=== PATIENT | female | born 1995 | race Hispanic/Latino ===

== ENCOUNTER 2016-10-06 16:12 | Emergency (ER) | payer MEDICAID, OTHER ==
[~2016-10-06] VITALS: Ht 165.1 cm; Wt 55.5 kg
[2016-10-06 16:16] VITALS: BP 122/81; PULSE 94; RESP 20; O2SAT 99
[2016-10-06] MEDS ORDERED: 0.9% Sodium Chloride 1,000 ML IV ONE (17:35)
[2016-10-06] MEDS ORDERED: Ondansetron 2 mg/mL 2 mL Inj IVPUSH PRN (18:05)
[2016-10-06] MEDS: HYDROmorphone 0.5 mg/0.5 mL iSecure Syringe IVPUSH PRN ×2 (18:08→19:02)
--- NOTE | 2016-10-06 18:11 | ED.REPORT ---
HPI-Abd Pain F Under 40 Date of Service Oct 06, 2016 ED Provider: Eran Khan DO A healthy 21 year old female presents to the ED accompanied by a male travograph operator complaining of four days of abdominal pain. Pain has been migrating around her abdomen and is currently localized in the RUQ. She also reports sore throat and left ear pain onset this morning upon awakening. Patient was seen at [facility] in [place] earlier today where she was diagnosed with an ear infection and given amoxicillin and Vicodin. CT at [facility] revealed fluid accumulation in her abdomen. She came down to the hospital here because she did not feel as though she received thorough treatment by providers in [place]. Nursing Notes Stated Complaint: STOMACH PAIN, EAR PAIN AND BLEEDING Chief Complaint: Female Abdominal Pain Nursing Notes Reviewed: Yes Allergies: Coded Allergies: No Known Allergies (Unverified , 10/06/16) General Time Seen by MD: 18:02 Chief Complaint Abdominal pain Hx Obtained From: Patient Arrived By: Walk-in Sudden in Onset?: No Onset Occurred: 4 days ago Symptom Duration: Since onset Location: : Diffuse: RLQ: RUQ Severity: Current: Moderate Severity: Maximum: Moderate Past Medical History Past Medical History Healthy Smoking History Unknown if Ever Smoker Social History Drug Use: THC Other Social History: Good social support Ambulatory Status Independent Review of Systems Constitutional: Denies: Chills, Fever Respiratory: Denies: Non-productive cough GI: Reports: Abdominal pain, Denies: Nausea, Vomiting Female: Reports: Flank pain (Right) Complete sys rev & neg: except as marked. Ears / Nose / Throat: Reports: Earache left, Sore throat Physical Exam Initial Vital Signs Vital Signs (First) Date Time Temp Pulse Resp B/P Pulse Ox O2 Delivery O2 Flow Rate FiO2 10/06/16 16:16 37.2 94 20 122/81 99 Room Air Initial VS: Reviewed Head / Eyes: Atraumatic, Normocephalic Extremities: Vascular intact, Neuro intact, No swelling, No tenderness Skin: Warm, Dry, No cyanosis Neurologic: Alert, Oriented, Nonfocal General/Constitutional: Awake, Alert, No acute distress, Well appearing Respiratory / Chest: Breath sounds NL, Breath sounds = bilat, No respiratory distress, No rales, No rhonchi, No wheezing Cardiovascular: Heart rate NL, Regular rhythm, Heart sounds NL, Peripheral circulation NL Abdomen: No rebound, No distention Tenderness/Guarding/Rebound: Positive: Tender RUQ... Back: Inspection NL, Non-tender, No CVA tenderness ENT: Airway patent, Mucous membranes moist Left TM ruptured, with blood on TM. Interpretation & Diagnostics Interpretation & Diagnostics: PROCEDURE: US ABDOMEN ([id number]) IMPRESSION: Normal abdomen ultrasound. Cause of right upper quadrant pain is not identified. Dictated by: Yusef Mccarthy M.D. on 10/06/2016 at 19:57 Approved by: Yusef Mccarthy M.D. on 10/06/2016 at 19:57 Lab Results Interpretation Result Diagram: 10/06/16 1748 10/06/16 1748 Test 10/06/16 17:27 10/06/16 17:48 10/06/16 18:23 Hold Urine Received (Received) White Blood Count 14.4th/mm3 (3.8-10.1) Red Blood Count 4.55mil/mm3 (3.90-5.20) Hemoglobin 13.9g/dL (12.0-15.6) Hematocrit 40.8% (35.0-46.0) Mean Corpuscular Volume 89.7fL (81-100) Mean Corpuscular Hemoglobin 30.5pg (27.0-35.0) Mean Corpuscular Hemoglobin Concent 34.1% (32.0-37.0) Red Cell Distribution Width 13.3% (12.3-15.4) Platelet Count 211bil/L (150-400) Neutrophils (%) (Auto) 83.2% (40-74) Lymphocytes (%) (Auto) 7.9% (14-46) Monocytes (%) (Auto) 6.3% (4-12) Eosinophils (%) (Auto) 2.2% (0-5) Basophils (%) (Auto) 0.1% (0-3) Sodium Level 138mEq/L (134-144) Potassium Level 3.6mEq/L (3.5-5.2) Chloride Level 101mEq/L (97-108) Carbon Dioxide Level 24mmol/L (18-29) Blood Urea Nitrogen 8mg/dL (6-20) Creatinine 0.44mg/dL (0.57-1.00) Estimat Glomerular Filtration Rate 254mL/min (>59) Glucose Level 97mg/dL (60-99) Calcium Level 8.8mg/dL (8.5-10.1) Magnesium Level 1.8mg/dL (1.6-2.6) Total Bilirubin 0.4mg/dL (0.0-1.2) Aspartate Amino Transf (AST/SGOT) 22U/L (0-50) Alanine Aminotransferase (ALT/SGPT) 14U/L (0-32) Alkaline Phosphatase 80U/L (25-150) Total Protein 6.8g/dL (6.4-8.4) Albumin 4.0g/dL (3.4-5.0) Lipase 16U/L (13-60) HCG Beta Subunit < 0.5mIU/mL Urine Color Straw (YELLOW) Urine Appearance Clear (CLEAR,HAZY) Urine pH 6.0 (5.0-8.0) Urine Specific Michie 1.015 (1.003-1.035) Urine Protein Negativemg/dL (NEG,TRACE) Urine Glucose (UA) Negativemg/dL (NEGATIVE) Urine Ketones Negativemg/dL (NEGATIVE) Urine Occult Blood Negative (NEGATIVE) Urine Nitrite Negative (NEGATIVE) Urine Bilirubin Negative (NEGATIVE) Urine Urobilinogen Normalmg/dL (NORMAL) Urine Leukocyte Esterase Negative (NEGATIVE) Urine RBC 0-2/hpf (0-2) Urine WBC 0-5/hpf (0-5) Urine Epithelial Cells Occasional/hpf (NONE-MOD) Urine Crystals None seen (NONE SEEN) Urine Bacteria None/hpf (NONE-FEW) Urine Hyaline Casts None/lpf (NONE) Urine Granular Casts None seen (NONE SEEN) Urine Waxy Casts None seen (NONE SEEN) Urine Red Blood Cell Casts None seen (NONE SEEN) Urine White Blood Cell Casts None seen (NONE SEEN) Urine Mucus None seen (None Seen) Urine Trichomonas None seen (NONE SEEN) Urine Yeast None (NONE SEEN) Urinalysis Comment None Urine Culture Reflexed Not indicated Re-Eval/Medical Decision Source of Hx: Old records Re-Evaluation/Progress #1: Time of Eval: 19:51 Re-Evaluation/Progress Note: Discussed resulted labs and ultrasound wet read. Updated patient on the plan of care. Re-Evaluation/Progress #2: Time of Eval: 21:14 Patient Status: Condition improved, Complete relief, Pain resolved Re-Evaluation/Progress Note: Discussed all lab and radiology results and plan to discharge. Patient is amenable to the plan. Return precautions given. All other questions addressed. Counseled Regarding: Diagnosis, Lab results, Need for follow-up, When/why to return to ED Discharge & Departure Primary Impression: Abdominal pain Abdominal location: right upper quadrant Qualified Code: R10.11 - Right upper quadrant pain Additional Impression: Tympanic membrane perforation Laterality: left Qualified Code: H72.92 - Unspecified perforation of tympanic membrane, left ear Disposition: Home Discharge Condition All VS Reviewed: Yes Condition: Stable Patient Instructions: Acute Abdominal Pain (ED), Tympanic Membrane Perforation (ED) Additional Instructions: Your laboratory results and CT scan were reassuring, the cause of your pain is still unknown. Call your primary care provider to arrange a follow-up appointment for later this week. Return to the ER if you develop any worsening or concerning symptoms. Your left tympanic membrane is ruptured. Apply 10 drops of the ofloxacin twice daily for 7 days. Finished a course of amoxicillin. Take 1-2 Garrard every 6 hours as needed for pain. Do not drive or drink alcohol or consume acetaminophen while taking the Garrard. Your ear needs to be looked at in about a week. The cause of the abdominal pain is uncertain and this too needs to be followed up with. Call Friday to set up outpatient follow-up. An ear nose and throat surgeon should look at her ear. We have given a referral to ear nose and throat. Referrals: Fidencio Zepeda MD (Family) Yousif Del Castillo MD Scribe Attestation Portions of this note were transcribed by Dylan Mckeon. I, Dr. Khna, personally performed the history, physical exam and medical decision-making; I reviewed and confirmed the accuracy of the information in the transcribed note. Signed by: Dylan Mckeon. 10/06/2016, 21:21 copies to: Yousif Del Castillo MD; Fidencio Zepeda MD, Todd P DO Oct 06, 2016 18:11 DYLAN MCKEON Oct 06, 2016 18:21
[2016-10-06] MEDS ORDERED: Ofloxacin 0.3% 10 mL Otic Solution LEFT_EAR ONE (18:20)
[2016-10-06 18:21] LABS: BASOPHILS % (AUTO) 0.1 % (0-3); EOSINOPHILS % (AUTO) 2.2 % (0-5); MONOCYTES % (AUTO) 6.3 % (4-12); Mean Corpuscular Hemoglobin 30.5 pg (27.0-35.0); Mean Corpuscular Volume 89.7 fL (81-100); NEUTROPHILS % (AUTO) 83.2 % (40-74); Platelet Count 211 bil/L (150-400)
[2016-10-06 18:33] LABS: Magnesium 1.8 mg/dL (1.6-2.6)
[2016-10-06 19:02] LABS: APPEARANCE,URINE CLEAR (CLEAR,HAZY); COLOR,URINE STRAW (YELLOW); OCCULT BLOOD,URINE NEGATIVE (NEGATIVE); UROBILINOGEN,URINE NORMAL (NORMAL)
--- NOTE | 2016-10-06 19:59 | DRSVH ---
PROCEDURE: US ABDOMEN ([id number]) INDICATIONS: right upper quadrant pain TECHNIQUE: Real-time scanning was performed of the abdominal and retroperitoneal organs, with image documentatio n. COMPARISON: None. FINDINGS: Liver: Liver is normal in size at 13.1 cm and homogeneous in echotexture. Gallbladder: Gallbladder is normal in appearance. Wall thickness is normal. No pericholecystic fluid is found. No stones or sludge is found. Biliary ducts: Intrahepatic bile ducts are non-dilated. Extrahepatic bile duct caliber measures 2.6 mm. Normal is 6-7 mm or less in diameter, or 10 mm or less post-cholecystectomy. Pancreas: All portions of the pancreas are sonographically normal. Spleen: Spleen is normal in size and homogeneous in echotexture. Maximum dimension of the spleen is 10.0 cm. Kidneys: Kidneys are normal in size and echotexture. Right kidney measures 11.0 cm long; left kidne y measures 10.2 cm long. No hydronephrosis or nephrolithiasis. No solid masses. Aorta: The entire abdominal aorta is normal in caliber at less than 3 cm. Iliacs: Proximal common iliac arteries are normal in caliber at less than 2.5 cm. the right measures 11 and the left 10 mm. IVC: Intrahepatic inferior vena cava is patent. Miscellaneous: No free abdominal fluid. IMPRESSION: Normal abdomen ultrasound. Cause of right upper quadrant pain is not identified. Dictated by: Yusef Mccarthy M.D. on 10/06/2016 at 19:57 Approved by: Yusef Mccarthy M.D. on 10/06/2016 at 19:57
[2016-10-06] MEDS ORDERED: _HYDROcodone/APAP 5-325 mg Tablet PO PRN (21:20)
[2016-10-06 21:33] VITALS: BP 104/67; PULSE 98; RESP 20; O2SAT 98
[2016-10-21] MEDS ORDERED: POLY17PO6 PO (21:41)
== END 2016-10-06 21:36 | disposition home or self-care (01) ==
LOC: SED 16:12
DX: R10.11 Right upper quadrant pain (principal); H72.92 Unspecified perforation of tympanic membrane, left ear
CPT/HCPCS: 76700; 80053; 81000; 81025; 83690; 83735; 84702; 85025; 96361; 96374; 96375; 96376; 99285; J1170; J2405; J7030

== ENCOUNTER 2017-06-09 15:32 | Emergency (ER) | payer MEDICAID, OTHER ==
[~2017-06-09] VITALS: Ht 165.1 cm; Wt 60.0 kg
[2017-06-09 15:32] VITALS: BP 110/69; PULSE 90; RESP 14; O2SAT 100
[~2017-06-09 15:32] MED LIST: POLY17PO6 PO
--- NOTE | 2017-06-09 16:51 | ED.REPORT ---
HPI-Back Pain Under 40 Date of Service Jun 09, 2017 ED Provider: Mahesh Kee MD Patient is a 21 year old female who presents to the ED complaining of back pain onset 3 days ago. Associated symptoms include pain with deep inhalation. She denies chest pain, shortness of breath, fever, nausea, vomiting, leg swelling, leg pain, hemoptysis or recent periods of long travel. Patient reports that the pain is exacerbated with movement. She states that three days ago she went out and had too much to drink and might have fallen but doesn't remember. Patient has not experienced this type of pain before. Nursing Notes Stated Complaint: BACK PAIN WITH MOVEMENT/BREATHING Chief Complaint: Back Pain or Injury Nursing Notes Reviewed: Yes Allergies: Coded Allergies: Adhesives (Verified Allergy, Unknown, 06/09/17) Scheduled Polyethylene Glycol 3350 (Miralax) 17 Gm Powd.pack 17 GM PO DAILY General Time Seen by MD: 16:51 Chief Complaint Back pain Hx Obtained From: Patient Arrived By: Walk-in Sudden in Onset?: Yes Onset Occurred: 3 days ago Symptom Duration: Since onset Location: : Spinal lumbar area Quality: Painful Radiation: : Does not radiate Severity: Current: Moderate Similar Sx Previous: No Past Medical History Past Medical History Healthy Smoking History Unknown if Ever Smoker Social History Drug Use: THC Other Social History: Good social support Ambulatory Status Independent Review of Systems Constitutional: Denies: Chills, Fever Respiratory: Denies: Hemoptysis, Non-productive cough, Shortness of breath Cardiovascular: Denies: Chest pain GI: Denies: Abdominal pain Musculoskeletal: Reports: Back pain, Denies: Extremity pain, Extremity swelling Neurologic: Denies: Numbness, Weakness Complete sys rev & neg: except as marked. Skin: Denies Itching, Denies Rash Physical Exam Initial Vital Signs Vital Signs (First) Date Time Temp Pulse Resp B/P Pulse Ox O2 Delivery O2 Flow Rate FiO2 06/09/17 15:32 37.0 90 14 110/69 100 Room Air Initial VS: Reviewed General/Constitutional: Awake, Alert Back: Atraumatic Neurologic: Oriented X3, Speech NL Respiratory / Chest: Atraumatic, Breath sounds NL, Breath sounds = bilat, No respiratory distress Cardiovascular: Heart rate NL, Regular rhythm, Heart sounds NL Lower Extremity / Pelvis / MS: Atraumatic, Full range of motion Head / Eyes: Atraumatic, Normocephalic, PERRL, EOMI Skin: Atraumatic, Color NL, No rash, Warm, Dry Psychiatric: Affect NL, Mood NL Interpretation & Diagnostics Lab Results Interpretation Test 06/09/17 17:39 Hold Urine Received (Received) X-Ray Chest Interpretation Chest Xray Interpretation: IMPRESSION: No acute pulmonary process. Dictated by: Diane Carmichael M.D. on 06/09/2017 at 17:48 Approved by: Diane Carmichael M.D. on 06/09/2017 at 17:48 Interpretation / Wet Read by: Interpret - Radiologist Re-Eval/Medical Decision Med Decision/Clinical Course 21-year-old female with low back pain after drinking a lot last night and she may have fallen. It is reproducible. Chest x-rays clear. Abdomen is soft and nontender. Suspect musculoskeletal. Her urine was negative. Recommend NSAIDs and ice. Return precautions given. Re-Evaluation/Progress : Time of Eval: 17:58 Re-Evaluation/Progress Note: Discussed results and plan for discharge. Patient understands and agrees to plan. All questions were addressed. Counseled Regarding: Diagnosis, Lab results, Need for follow-up, When/why to return to ED Discharge & Departure Impression: Primary Impression: Low back pain Chronicity: acute Back pain laterality: left Sciatica presence: without sciatica Qualified Code: M54.5 - Low back pain All VS Reviewed: Yes Condition: Stable Patient Instructions: Low Back Strain (ED) Additional Instructions: Your back X-ray was normal and reassuring. There was no evidence of any fractures. It is possible that you strained your back over the weekend. You can take ibuprofen as needed for pain. Follow up with your primary care physician next week. Return to the emergency department if you develop any new or concerning symptoms including urine or bowel incontinence, weakness, numbness or worsening pain. Referrals: ELIE SOLIMAN (PCP) Rocco[place]kamran Attestation Portions of this note were transcribed by Ariana Calderon. I, Dr. Kee personally performed the history, physical exam and medical decision-making; I reviewed and confirmed the accuracy of the information in the transcribed note. Signed by: Iam Espinoza, 06/09/17. copies to: ELIE SOLIMAN Ben M MD Jun 09, 2017 16:51 Susan Calderon Jun 09, 2017 17:00
--- NOTE | 2017-06-09 17:50 | DRSVH ---
PROCEDURE: X-RAY CHEST, TWO VIEWS ([id number]) INDICATIONS: Left rib pain TECHNIQUE: 2 views of the chest were acquired. COMPARISON: None. FINDINGS: Surgical changes and devices: None. Lungs and pleura: No pleural effusions or pneumothorax. Lungs are clear. Mediastinum: Mediastinal contours are normal. Heart size is normal. Bones and chest wall: No suspicious bony abnormalities. Soft tissues appear unremarkable. IMPRESSION: No acute pulmonary process. Dictated by: Diane Carmichael M.D. on 06/09/2017 at 17:48 Approved by: Diane Carmichael M.D. on 06/09/2017 at 17:48
[2017-06-09 18:06] VITALS: BP 106/66; PULSE 51; O2SAT 100
[2017-06-09 18:16] VITALS: BP 106/66; PULSE 51; RESP 14; O2SAT 100
== END 2017-06-09 18:17 ==
LOC: SED 15:32
DX: M54.5 Low back pain (principal)
CPT/HCPCS: 71020; 81025; 96372; 99284; J1885